=== PATIENT | male | born 2005 | race Two or more races ===

== ENCOUNTER 2025-05-21 23:27 | Inpatient (IN) | payer OTHER ==
[~2025-05-21] VITALS: Ht 172.7 cm; Wt 71.0 kg
[2025-05-21] MEDS: SODIUM CHLORIDE 0.9% 1,000 ML IV ONE (23:45)
[2025-05-21] MEDS: PANTOPRAZOLE 40 MG/10 ML VIAL INJ IV ONE (23:45)
[2025-05-21] MEDS: ONDANSETRON HCL 4 MG/2 ML VIAL IV ONE (23:45)
[2025-05-21 23:47] VITALS: PULSE 103; RESP 20; O2SAT 97
[2025-05-22 00:28] LABS: Hematocrit 42.6 % (41.0-53.0); Hemoglobin 14.7 g/dL (13.5-17.5); Mean Corpuscular Hemoglobin 29.7 pg (28.0-32.0); Mean Corpuscular Volume 85.9 fL (80.0-100.0); Nucleated Red Blood Cells % 0.0 %
--- NOTE | 2025-05-22 00:30 | ED.PDOC ---
GI ASSESSMENT HPI Comments Past Medical History: Denies Past Surgical History: Denies Social History: Alcohol RHONDA: ABD N/V ETOH. HPI: Poor Historian. 19-year-old male brought in by ambulance from home for abdominal pain nausea and vomiting altered and intoxicated. Patient has drank alcohol at awaiting. His family is with him. No reported history of fall or trauma. REVIEW OF SYSTEMS: CONSTITUTIONAL: Denies acute: fever, diaphoresis, chills, HEAD: Denies acute: headache, photophobia Eyes: Denies acute: Double vision, vision loss, eye pain, eye discharge. EARS: Denies acute: tinnitus, hearing loss, ear discharge, ear pain, THROAT: Denies acute: sore throat, swelling, difficulty swallowing , pain with swallowing, change in voice. NECK: Denies acute: neck pain, neck swelling, stiff neck. HEART: Denies acute : chest pain, palpitations, LUNGS: Denies acute: SOB, wheezing, cough, hemoptysis ABDOMEN: Denies acute: diarrhea, melena , hematemesis, hematochezia SKIN: Denies acute: rash, redness, lesions, itchiness. EXTREMITIES: Denies acute: calf pain, numbness, tingling, weakness, denies pain in extremity. Denies acute: Low back pain. Neuro: Denies acute: focal neurological deficit, motor or sensory focal neurological deficit, tremors, seizure like activity, dizziness, loss of bowel or bladder function, cauda equina like symptoms. : Denies acute: dysuria, hematuria, flank pain, increase in urinary frequency. PSYCH: Denies acute: hallucination, suicidal ideation, homicidal ideation. PHYSICAL EXAM: General: --moderate------acute distress, awake and alert. Head: normocephalic, atraumatic. No raccoon's eyes, no trejo sign. Neck: supple, trachea is midline, no swelling. Throat: Normal phonation. Eyes:, no erythema, no purulent discharge, no proptosis, no icterus. Heart: regular rate, regular rhythm, no significant murmur appreciated. Lungs: no apparent respiratory distress, No wheezing, no rhonchi, no crackles. No stridors Clear to auscultation bilaterally. Abdomen: Generalized tender to palpation, non distended, soft, no guarding, no rebound, + bowel sounds. Neuro: Awake, Alert, oriented to name, follows commands Appears under the influence of alcohol. Sedated. Skin: no petechia, no purpura, no cyanosis, non-pale, not jaundice. Lower extremities: --no - Pitting edema no deformity, no focal swelling, no calf TTP. Makes eye contact. moves all four extremities. Face: no apparent facial droop. ED COURSE: DISCLAIMER: This medical document was created using an electronic medical record system with voice recognition software and computerized dictation system. Although this document has been carefully reviewed, there might still be some phonetic and typographical errors. Occasional wrong-word or "sound-alike" substitutions may have occurred due to the inherent limitations of voice recognition software. These areas are purely typographical due to imperfections of the software programs and do not reflect any compromise in the patient's medical care. Please read the chart carefully and recognize, using context, where these substitutions have occurred. Chief Complaint: Abdominal Pain Time Seen by MD: 00:20 Reviewed Notes: Allergies Allergies: Coded Allergies: NO KNOWN ALLERGIES (Unverified , 05/21/25) Information Source: Patient, Relative Mode of Arrival: Carried Was a procedure done? Was a procedure done?: No GI differential Dx Differential Diagnosis: Other (DDX include but not limited to diverticulitis, c olitis, gastroenteritis, acute abdomen, SBO, enteritis, constipation, volvulus, appendicitis, Gallbladder disease, choledocolithiasis, ascending cholangitis, pancreatitis, intraAbdominal mass/neoplasm, hepatitis, UTI, pylonephritis, kidney stone, aneurysm, dissection, Inflammatory bowel disease, gastroparesis, ischemic bowel.Food poisoning, bacterial/parasitic/viral etiology, trauma, diabetes DKA,) X-Ray, Labs, Meds, VS Vital Signs Date Time Temp Pulse Resp B/P (MAP) Pulse Ox O2 Delivery O2 Flow Rate FiO2 05/22/25 06:08 98.1 88 18 110/72 (85) 97 98.1 05/22/25 01:44 98.1 85 18 146/103 (117) 97 98.1 05/22/25 00:46 108 05/21/25 23:47 103 20 97 Room Air* 0 21 05/21/25 23:47 98.1 104 20 159/103 (121) 97 98.1 05/21/25 23:27 97.8 110 18 134/100 100 97.8 Lab Test 05/22/25 05:07 05/22/25 02:57 05/21/25 23:56 05/21/25 23:44 Range/Units Plasma/Serum Blood Alcohol 41.9 H 132.2 H <10 mg/dL Lactic Acid Level 1.6 2.6 *H 0.4-2.0 mmol/L White Blood Count 7.9 4.4-10.8 10^3/uL Red Blood Count 4.96 4.5-5.90 10^6/uL Hemoglobin 14.7 13.5-17.5 g/dL Hematocrit 42.6 41.0-53.0 % Mean Corpuscular Volume 85.9 80.0-100.0 fL Mean Corpuscular Hemoglobin 29.7 28.0-32.0 pg Mean Corpuscular Hemoglobin Concent 34.6 32.0-36.0 g/dL Red Cell Distribution Width 12.2 11.8-14.3 % Platelet Count 197 140-450 10^3/uL Mean Platelet Volume 7.5 6.9-10.8 fL Neutrophils (%) (Auto) 53.9 37.0-80.0 % Lymphocytes (%) (Auto) 34.8 10.0-50.0 % Monocytes (%) (Auto) 8.7 0.0-12.0 % Eosinophils (%) (Auto) 2.0 0.0-7.0 % Basophils (%) (Auto) 0.6 0.0-2.0 % Neutrophils # (Auto) 4.3 1.6-8.6 10 ^3/uL Lymphocytes # (Auto) 2.8 0.4-5.4 10 ^3/uL Monocytes # (Auto) 0.7 0-1.3 10 ^3/uL Eosinophils # (Auto) 0.2 0-0.8 10 ^3/uL Basophils # (Auto) 0 0-0.2 10 ^3/uL Nucleated Red Blood Cells 0.0 % Sodium Level 142 136-145 mmol/L Potassium Level 3.6 3.5-5.1 mmol/L Chloride Level 104 98-107 mmol/L Carbon Dioxide Level 25 20-31 mmol/L Anion Gap 13 5-15 Blood Urea Nitrogen 6 L 9-23 mg/dL Creatinine 0.91 0.700-1.30 mg/dL Glomerular Filtration Rate Calc 125 >90 mL/min BUN/Creatinine Ratio 6.6 L 10.0-20.0 Serum Glucose 92 74-106 mg/dL Calcium Level 10.1 8.7-10.4 mg/dL Magnesium Level 2.0 1.6-2.6 mg/dL Total Bilirubin 0.3 0.2-1.0 mg/dL Aspartate Amino Transferase (AST) 12 L 13-40 U/L Alanine Aminotransferase (ALT) 14 7-40 U/L Alkaline Phosphatase 139 H 46-116 U/L Total Protein 8.2 5.7-8.2 g/dL Albumin 5.2 H 3.2-4.8 g/dL Lipase 27 12-53 U/L Urine Color Light-yellow Yellow Urine Clarity Clear Clear Urine pH 7.0 5.0-9.0 Urine Specific [place] 1.006 1.001-1.035 Urine Protein Negative Negative Urine Ketones Negative Negative Urine Blood Negative Negative /uL Urine Nitrite Negative Negative Urine Bilirubin Negative Negative Urine Urobilinogen Normal Negative mg/dL Urine Leukocyte Esterase Negative Negative /uL Urine RBC None seen 0 - 3 /hpf Urine Microscopic WBC 4 H 0-3 /HPF Urine Squamous Epithelial Cells Few <5 /hpf Urine Bacteria None seen None Seen /hpf Urine Glucose Normal Normal mg/dL Urine Opiates Screen Neg NEGATIVE Urine Fentanyl Screen Neg NEGATIVE Urine Barbiturates Screen Neg NEGATIVE Urine Phencyclidine Screen Neg NEGATIVE Urine Amphetamines Screen Neg NEGATIVE Urine Benzodiazepines Screen Neg NEGATIVE Urine Cocaine Screen Neg NEGATIVE Urine Cannabinoids Screen Neg NEGATIVE Current Medications Medications (Trade) Dose Ordered Sig/Sari Route Start Time Stop Time Status Last Admin Sodium Chloride 1,000 ml @ 1,000 mls/hr Q1H ONCE IV 05/21/25 23:45 05/22/25 00:44 DC 05/21/25 23:45 Ondansetron HCl (Zofran) 8 mg ONCE ONCE IV 05/21/25 23:45 05/21/25 23:46 DC 05/21/25 23:45 Pantoprazole Sodium (Protonix) 40 mg ONCE ONCE IV 05/21/25 23:45 05/21/25 23:46 DC 05/21/25 23:45 Acetaminophen (Tylenol Tablet) 650 mg ONCE ONCE PO 05/22/25 02:15 05/22/25 02:16 DC 05/22/25 02:[address] [address] Ph: [phone] DIAGNOSTIC IMAGING Diagnostic Imaging Report : [id number] Signed PATIENT: TERRY ELLIS ACCT: [id number] UNIT: [id number] : 2005 LOC: ER ROOM / BED: / AGE / SEX: 19 / M ADM STATUS: REG ER SERVICE [id number] ORDERING PHYSICIAN: BROWN BUSTOS DO PROCEDURE(s): ABPL - CT AB PEL WO CON-NO ORAL OR IV REASON: abd pain n/v ORDER NUMBER(s): [id number], ACCESSION NUMBER(s): [id number] Exam: CT CT AB PEL WO CON-NO ORAL OR IV History: abd pain n/v Comparison Study: None TECHNIQUE: Multidetector CT of the abdomen and pelvis was performed from lung bases to pubic symphysis. Imaging was performed without IV contrast. Axial, coronal, and sagittal multiplanar reformats were obtained from the axial data set by the technologist. RADIATION DOSE: CTDI vol 9.4 mGy. DLP 602.6 mGy.cm Findings: Limited evaluation of the solid organs in the absence of IV contrast. Evaluation is also degraded by motion artifact. Lungs: The lung bases are clear. Liver: Unremarkable. Spleen: Unremarkable. Pancreas: Unremarkable. Gallbladder: Unremarkable. Adrenals: Unremarkable Kidneys: Mild bilateral hydroureteronephrosis. No obstructing renal calculus. Pelvic Viscera: Distended appearance of the urinary bladder. Vasculature: Unremarkable. Retroperitoneum: Unremarkable. Bowel: No bowel obstruction. No CT evidence of appendicitis. The appendix measures 7 mm without periappendiceal stranding. Musculoskeletal: Unremarkable. Soft tissues: Unremarkable Impression: 1. Distended urinary bladder with mild bilateral hydroureteronephrosis, possibly on the basis of bladder outlet obstruction. 2. Mildly dilated appendix without periappendiceal stranding. Findings are equivocal for acute appendicitis and further clinical correlation is suggested. ATED BY: SANDOVAL OTT MD DICTATED DATE/TIME: 05/22/2556 SIGNED BY: SANDOVAL OTT MD SIGNED DATE/TIME: 05/22/2556 CC: Time of 1ST Reevaluation: 00:20 Reevaluation 1ST: Unchanged Time of 2ND Reevaluation: 05:20 (PATIENT WAS REASSESSED AT THIS TIME. HE WAS ABLE TO VOID SIGNIFICANT MONITOR OF URINE EARLIER AND EMPTIED HIS BLADDER. Patient was reassessed and he still has some lower abdominal suprapubic tenderness to palpation of unknown etiology. I will place the patient for admission to the hospital for further evaluation and treatment and reassessment.) Patient Education/Counseling: Diagnosis, Treatment Family Education/Counseling: Diagnosis, Treatment Comments MDM: patient presented with the above HPI.--abdominal pain/alcohol intoxication----workup was initiated. patient was found with the above mentioned diagnosis. the following medications were ordered: please refer to order lists of meds and tests obtained by myself Dr. Bustos. Patient ED course and VS have been stabilized. Patient has been reassessed in the ED and remained in a stable condition. Pertinent incidental findings were discussed with the patient and/or family. Patient/family voices understanding and is agreeable with plan. Patient has been observed in the ED adequate length of time to insure improvement/stability. Escalation of care considered: Consideration of escalation to observation or admission Patient was ADMITTED to the medicine team for further evaluation and treatment of their presentation. All the reports of any imaging studies that were ordered by myself were reviewed by myself. SEPSIS Sepsis Screen Date sepsis recognized/suspect: May 21, 2025 Time Sepsis recognized/suspect: 2356 Recent Procedure: No On Antibiotic Therapy: No Respiratory Rate >20: No Heart Rate >90: No Temp<36 C (96.8 F) or >38.3 C: No SBP <90 or MAP <65 mmHG: No New Acute Mental Status Change: No Is the patient on CPAP, BIPAP,: No Physician Orders Aircraft Structural Design Engineer (05/21/25 ) Electrocardigram (05/21/25 23:44) Ct Ab Pel Wo Con-No Oral Or Iv (05/21/25 23:44) Vital Signs Date Time Temp Pulse Resp B/P (MAP) Pulse Ox O2 Delivery O2 Flow Rate FiO2 05/22/25 06:08 98.1 88 18 110/72 (85) 97 98.1 05/22/25 01:44 98.1 85 18 146/103 (117) 97 98.1 05/22/25 00:46 108 05/21/25 23:47 103 20 97 Room Air* 0 21 05/21/25 23:47 98.1 104 20 159/103 (121) 97 98.1 05/21/25 23:27 97.8 110 18 134/100 100 97.8 Laboratory Tests Test 05/21/25 23:56 05/22/25 02:57 Lactic Acid Level 2.6 mmol/L (0.4-2.0) *H 1.6 mmol/L (0.4-2.0) White Blood Count 7.9 10^3/uL (4.4-10.8) Medications Medications Dose Ordered Sig/Sari Route Start Time Stop Time Status Last Admin Dose Admin Acetaminophen 650 mg ONCE ONCE PO 05/22/25 02:15 05/22/25 02:16 DC 05/22/25 02:28 Ondansetron HCl 8 mg ONCE ONCE IV 05/21/25 23:45 05/21/25 23:46 DC 05/21/25 23:45 Pantoprazole Sodium 40 mg ONCE ONCE IV 05/21/25 23:45 05/21/25 23:46 DC 05/21/25 23:45 Sodium Chloride 1,000 ml @ 1,000 mls/hr Q1H ONCE IV 05/21/25 23:45 05/22/25 00:44 DC 05/21/25 23:45 Departure 1 Departure Time of Disposition: 05:21 Impression: Primary Impression: Alcohol abuse Additional Impression: Abdominal pain Disposition: ADMITTED INPATIENT Admit to: Tele Condition: Guarded Discharged With: Self Critical Care Note Critical Care Time?: No I personally scribed for BROWN BUSTOS DO ([email or web address]) on 05/22/25 at 00:30. Electronically submitted by Andrey Latham ([email or web address]). I personally scribed for BROWN BUSTOS DO ([email or web address]) on 05/22/25 at 04:32. Electronically submitted by Andrey Latham [email or web address]). BROWN BUSTOS DO May 22, 2025 00:30
[2025-05-22 00:41] LABS: Alanine Aminotransferase 14 U/L (7-40); Anion Gap 13 (5-15); BUN/Creatinine Ratio 6.6 (10.0-20.0); Calcium 10.1 mg/dL (8.7-10.4); Carbon Dioxide 25 mmol/L (20-31); Chloride 104 mmol/L (98-107); Glucose 92 mg/dL (74-106); Lipase 27 U/L (12-53); Magnesium 2.0 mg/dL (1.6-2.6); Potassium 3.6 mmol/L (3.5-5.1); Sodium 142 mmol/L (136-145); Total Protein 8.2 g/dL (5.7-8.2)
[2025-05-22 00:51] LABS: Albumin 5.2 g/dL (3.2-4.8); Alkaline Phosphatase 139 U/L (46-116); Bilirubin, Total 0.3 mg/dL (0.2-1.0); Blood Urea Nitrogen 6 mg/dL (9-23); Lactic Acid w/Reflex 2.6 mmol/L (0.4-2.0)
--- NOTE | 2025-05-22 00:59 | DVH ---
Exam: CT CT AB PEL WO CON-NO ORAL OR IV History: abd pain n/v Comparison Study: None TECHNIQUE: Multidetector CT of the abdomen and pelvis was performed from lung bases to pubic symphysis. Imaging was performed without IV contrast. Axial, coronal, and sagittal multiplanar reformats were obtained from the axial data set by the technologist. RADIATION DOSE: CTDI vol 9.4 mGy. DLP 602.6 mGy.cm Findings: Limited evaluation of the solid organs in the absence of IV contrast. Evaluation is also degraded by motion artifact. Lungs: The lung bases are clear. Liver: Unremarkable. Spleen: Unremarkable. Pancreas: Unremarkable. Gallbladder: Unremarkable. Adrenals: Unremarkable Kidneys: Mild bilateral hydroureteronephrosis. No obstructing renal calculus. Pelvic Viscera: Distended appearance of the urinary bladder. Vasculature: Unremarkable. Retroperitoneum: Unremarkable. Bowel: No bowel obstruction. No CT evidence of appendicitis. The appendix measures 7 mm without periappendiceal stranding. Musculoskeletal: Unremarkable. Soft tissues: Unremarkable Impression: 1. Distended urinary bladder with mild bilateral hydroureteronephrosis, possibly on the basis of bladder outlet obstruction. 2. Mildly dilated appendix without periappendiceal stranding. Findings are equivocal for acute appendicitis and further clinical correlation is suggested.
[2025-05-22 01:14] LABS: Urine Protein, UAD Negative (Negative)
[2025-05-22 01:16] LABS: Amphetamine Screen, Urine Neg (NEGATIVE)
[2025-05-22 01:33] LABS: Barbiturate Scree,Urine Neg (NEGATIVE); Benzodiazephine Screen, Urine Neg (NEGATIVE); Cannabinoid Screen, Urine Neg (NEGATIVE); Cocaine Screen, Urine Neg (NEGATIVE); Opiate Scree,Urine Neg (NEGATIVE); Phencyclidine Screen, Urine Neg (NEGATIVE)
[2025-05-22] MEDS: ACETAMINOPHEN 325 MG TAB PO ONE (02:28)
[2025-05-22] MEDS: SODIUM CHLORIDE 0.9% 1,000 ML IV SCH (06:00)
[2025-05-22 07:30] VITALS: PULSE 95; RESP 17; O2SAT 99
[2025-05-22] MEDS ORDERED: ONDANSETRON HCL 4 MG/2 ML VIAL IV PRN (10:00)
[2025-05-22 11:08] VITALS: BP 123/76; PULSE 61; RESP 19; TEMP 98.1; O2SAT 100
[2025-05-22] MEDS ORDERED: LORazepam 2MG/ML-1ML VIAL IV PRN (11:45)
[2025-05-22] MEDS: THIAMINE 100mg/ml INJ (200mg/2ml VIAL) IV SCH (11:58)
[2025-05-22 12:57] LABS: Hematocrit 40.9 % (41.0-53.0); Hemoglobin 13.9 g/dL (13.5-17.5); Mean Corpuscular Hemoglobin 29.4 pg (28.0-32.0); Mean Corpuscular Volume 86.7 fL (80.0-100.0); Nucleated Red Blood Cells % 0.1 %
[2025-05-22 13:00] VITALS: BP 120/79; PULSE 59; RESP 20; TEMP 98.2; O2SAT 100
[2025-05-22 13:10] LABS: Chloride 105 mmol/L (98-107); Potassium 4.0 mmol/L (3.5-5.1); Sodium 145 mmol/L (136-145)
[2025-05-22 13:11] LABS: Anion Gap 9 (5-15); Calcium 9.6 mg/dL (8.7-10.4); Carbon Dioxide 31 mmol/L (20-31)
[2025-05-22 13:15] LABS: INR 1.08 (0.9-1.15); Partial Thromboplastin Time 28.5 SEC (24.5-34.5); Prothrombin Time 11.4 sec (9.3-11.8)
[2025-05-22 13:16] LABS: BUN/Creatinine Ratio 9.3 (10.0-20.0); Glucose 82 mg/dL (74-106)
[2025-05-22 13:17] LABS: Blood Urea Nitrogen 8 mg/dL (9-23)
--- NOTE | 2025-05-22 13:27 | DVH ---
EXAM DESCRIPTION: RENAL ULTRASOUND CLINICAL HISTORY: possible cystoscopy due to bladder outlet COMPARISON: CT abdomen pelvis same day TECHNIQUE: Multiplanar ultrasound examination of the kidneys and urinary bladder was performed. FINDINGS: The right kidney measures 9.6 cm. 6mm right renal calculus.. No hydronephrosis.. No solid renal masses. The left kidney measures 10.0 cm. No renal calculus. No hydronephrosis.. No solid renal masses. The echogenicity of the kidneys is within normal limits. Moderately distended urinary bladder, volume 514 mL. IMPRESSION: 1. Non-obstructive 6mm right renal calculus. No significant hydronephrosis 2. Moderately distended urinary bladder.
[2025-05-22] MEDS: FOLIC ACID 1 MG in D5W 5% 50 ML INJ SCH (13:34)
--- NOTE | 2025-05-22 14:21 | DVHHPRES ---
History of Present Illness Resident Creating Document: KRISHNA NGUYEN RESIDENT History of Present Illness This is a 19-year-old male with apparent no past medical history came to ER accompanied his mother (Santy) with the complaint of abdominal pain which started for 4-5 days and getting worse suddenly around 11:00 p.m. day before admission. Abdominal pain was 10/10 intensity, stabbing in nature, no aggravating or relieving factor associated with vomiting which contain food materials but not mixed with blood. Patient denies any similar symptoms before. Patient drank alcohol hour before abdominal pain started. In ER, patient treated conservatively and pain improved. Currently denies any sweating, anxiety, visual disturbance, headache, abdominal pain, seizure, hallucination. Past medical history: Nothing contributory Past surgical history: Nothing contributory Social history: Drinks alcohol and last drink was 10:00 p.m. last night. Allergy: No known allergy PCP: None Home medication: None Review of Systems Constitutional: Yes: Weakness, Malaise; No: Fever, Chills, Sweats, Other Eyes: No: Pain, Vision change, Conjunctivae inflammation, Eyelid inflammation, Other, Redness ENT: No: Ear pain, Ear discharge, Nose pain, Nose discharge, Nose congestion, Mouth pain, Mouth swelling, Throat pain, Throat swelling, Other Respiratory: No: Cough, Dry, Shortness of breath, SOB with excertion, Wheezing, Hemoptysis, Pleuritic Pain, Sputum, Wheezing, Other Cardiovascular: No: Chest Pain, Palpitations, Orthopnea, Paroxysmal Noc. Dyspnea, Edema, Lt Headedness, Other Gastrointestinal: Vomiting, Abdominal Pain; No: Nausea, Diarrhea, Constipation, Melena, Hematochezia, Other Genitourinary: No Dysuria, No Frequency, No Incontinence, No Hematuria, No Retention, No Other Musculoskeletal: No: other, neck pain, shoulder pain, arm pain, back pain, hand pain, leg pain, foot pain Skin: No: Rash, Lesions, Jaundice, Bruising, Other Neurological: No: Weakness, Numbness, Incoordination, Change in speech, Confusion, Seizures, Other Allergies: Coded Allergies: NO KNOWN ALLERGIES (Unverified , 05/21/25) Medications Current Medications Medications Dose Ordered Sig/Sari Route Start Time Stop Time Status Last Admin Dose Admin Sodium Chloride 1,000 ml @ 100 mls/hr Q10H IV 05/22/25 10:00 05/22/25 11:58 100 MLS/HR Ondansetron HCl 4 mg Q4HP PRN IV 05/22/25 10:00 Morphine Sulfate 2 mg Q4HPRN PRN IV 05/22/25 10:00 Ceftriaxone Sodium 50 ml @ 100 mls/hr DAILY@09 IV 05/23/25 09:00 Metronidazole 100 ml @ 100 mls/hr Q8HR IV 05/22/25 22:00 Folic Acid 1 mg/ Multivitamins 10 ml/Magnesium Sulfate 8 meq/ Thiamine HCl 100 mg/Dextrose 1,013.2 ml @ 125.001 mls/hr DAILY@1800 INJ 05/22/25 18:00 Thiamine HCl 100 mg DAILY IV 05/22/25 10:00 05/22/25 11:58 100 MG Folic Acid 1 mg/ Dextrose 50.2 ml @ 200.8 mls/ hr DAILY INJ 05/22/25 10:00 05/22/25 13:34 200.8 MLS/HR Famotidine 20 mg DAILY IV 05/23/25 10:00 Lorazepam 1 mg Q5MINP PRN IV 05/22/25 11:45 Exam Vital Signs Vital Signs Date Time Temp Pulse Resp B/P (MAP) Pulse Ox O2 Delivery O2 Flow Rate FiO2 05/22/25 13:00 98.2 59 20 120/79 (93) 100 98.2 05/22/25 11:08 Room Air* 0 21 General Appearance: Oriented X3, Cooperative, moderate distress HEENT: Atraumatic, PERRLA, EOMI, Mucous membr. moist/pink Respiratory: Clear to auscultation, Normal air movement Cardiovascular: Regular rate, Normal S1, Normal S2, No murmurs Abdominal: Normal bowel sounds, No hepatospenomegaly, Other (Left and right lower quadrant tender on deep palpation, rebound tenderness positive) Extremities: No clubbing, No cyanosis, No edema Skin: No breakdown, No significant lesion Neuro: Normal gait, Normal speech, Strength at 5/5 X4 ext, Sensation intact Psych/Mental Status: Mental status NL, Mood NL Labs/Xrays Labs Test 05/22/25 12:01 05/22/25 05:07 05/22/25 02:57 05/21/25 23:56 Range/Units White Blood Count 5.3 # 4.4-10.8 10^3/uL Red Blood Count 4.72 4.5-5.90 10^6/uL Hemoglobin 13.9 13.5-17.5 g/dL Hematocrit 40.9 L 41.0-53.0 % Mean Corpuscular Volume 86.7 80.0-100.0 fL Mean Corpuscular Hemoglobin 29.4 28.0-32.0 pg Mean Corpuscular Hemoglobin Concent 33.9 32.0-36.0 g/dL Red Cell Distribution Width 12.3 11.8-14.3 % Platelet Count 188 140-450 10^3/uL Mean Platelet Volume 8.0 6.9-10.8 fL Neutrophils (%) (Auto) 59.8 37.0-80.0 % Lymphocytes (%) (Auto) 30.0 10.0-50.0 % Monocytes (%) (Auto) 7.4 0.0-12.0 % Eosinophils (%) (Auto) 1.9 0.0-7.0 % Basophils (%) (Auto) 0.9 0.0-2.0 % Neutrophils # (Auto) 3.2 1.6-8.6 10 ^3/uL Lymphocytes # (Auto) 1.6 0.4-5.4 10 ^3/uL Monocytes # (Auto) 0.4 0-1.3 10 ^3/uL Eosinophils # (Auto) 0.1 0-0.8 10 ^3/uL Basophils # (Auto) 0 0-0.2 10 ^3/uL Nucleated Red Blood Cells 0.1 % Prothrombin Time 11.4 9.3-11.8 sec Prothrombin Time INR 1.08 0.9-1.15 Activated Partial Thromboplast Time 28.5 24.5-34.5 SEC Sodium Level 145 136-145 mmol/L Potassium Level 4.0 3.5-5.1 mmol/L Chloride Level 105 98-107 mmol/L Carbon Dioxide Level 31 20-31 mmol/L Anion Gap 9 5-15 Blood Urea Nitrogen 8 L 9-23 mg/dL Creatinine 0.86 0.700-1.30 mg/dL Glomerular Filtration Rate Calc 128 >90 mL/min BUN/Creatinine Ratio 9.3 L 10.0-20.0 Serum Glucose 82 74-106 mg/dL Hemoglobin A1c 5.3 <5.7 % A1C Calcium Level 9.6 8.7-10.4 mg/dL Thyroid Stimulating Hormone (TSH) 1.26 0.55-4.78 uIU/mL Plasma/Serum Blood Alcohol 41.9 H <10 mg/dL Lactic Acid Level 1.6 0.4-2.0 mmol/L Magnesium Level 2.0 1.6-2.6 mg/dL Total Bilirubin 0.3 0.2-1.0 mg/dL Aspartate Amino Transferase (AST) 12 L 13-40 U/L Alanine Aminotransferase (ALT) 14 7-40 U/L Alkaline Phosphatase 139 H 46-116 U/L Total Protein 8.2 5.7-8.2 g/dL Albumin 5.2 H 3.2-4.8 g/dL Lipase 27 12-53 U/L Test 05/21/25 23:44 Range/Units Urine Color Light-yellow Yellow Urine Clarity Clear Clear Urine pH 7.0 5.0-9.0 Urine Specific [place] 1.006 1.001-1.035 Urine Protein Negative Negative Urine Ketones Negative Negative Urine Blood Negative Negative /uL Urine Nitrite Negative Negative Urine Bilirubin Negative Negative Urine Urobilinogen Normal Negative mg/dL Urine Leukocyte Esterase Negative Negative /uL Urine RBC None seen 0 - 3 /hpf Urine Microscopic WBC 4 H 0-3 /HPF Urine Squamous Epithelial Cells Few <5 /hpf Urine Bacteria None seen None Seen /hpf Urine Glucose Normal Normal mg/dL Urine Opiates Screen Neg NEGATIVE Urine Fentanyl Screen Neg NEGATIVE Urine Barbiturates Screen Neg NEGATIVE Urine Phencyclidine Screen Neg NEGATIVE Urine Amphetamines Screen Neg NEGATIVE Urine Benzodiazepines Screen Neg NEGATIVE Urine Cocaine Screen Neg NEGATIVE Urine Cannabinoids Screen Neg NEGATIVE SEPSIS Sepsis Screen Date sepsis recognized/suspect: May 22, 2025 Time Sepsis recognized/suspect: 729 Recent Procedure: No On Antibiotic Therapy: No Respiratory Rate >20: No Heart Rate >90: Yes Temp<36 C (96.8 F) or >38.3 C: No SBP <90 or MAP <65 mmHG: No New Acute Mental Status Change: No Is the patient on CPAP, BIPAP,: No Physician Orders Admit (05/22/25 09:53) Allergies (05/22/25 09:53) Code Status (05/22/25 09:53) Sodium Chloride 0.9% (05/22/25 10:00) Ondansetron Hcl (Zofran) (05/22/25 10:00) Npo (Nothing By Mouth) Diet (05/22/25 Lunch) Morphine Sulfate Injection (05/22/25 10:00) Notify Md Of Changes From Base (05/22/25 09:53) Ceftriaxone 1gm/50ml (Rocephin) (05/23/25 09:00) Metronidazole 500mg/100ml (Flagyl 500mg/ (05/22/25 22:00) Folic Acid... (05/22/25 18:00) Thiamine Inj (05/22/25 10:00) Folic Acid (05/22/25 10:00) * Urology Consult (05/22/25 09:53) Famotidine Injection (Pepcid Injection) (05/23/25 10:00) Lorazepam 2mg/Ml Inj (Ativan Inj) (05/22/25 11:45) Vitamin D, 25-Hydroxy (05/22/25 11:33) Vitamin B12 (05/22/25 11:33) Kidney (05/22/25 12:20) Insert Vance Catheter QSHIFT (05/22/25 13:45) Vital Signs Date Time Temp Pulse Resp B/P (MAP) Pulse Ox O2 Delivery O2 Flow Rate FiO2 05/22/25 13:00 98.2 59 20 120/79 (93) 100 98.2 05/22/25 11:08 61 19 100 Room Air* 0 21 05/22/25 11:08 98.1 61 19 123/76 (92) 100 98.1 05/22/25 10:30 63 14 123/75 (91) 98 05/22/25 09:35 64 05/22/25 09:00 55 16 103/64 (77) 99 05/22/25 08:00 63 16 117/60 (79) 99 05/22/25 07:30 98.0 95 17 112/69 (83) 99 98.0 05/22/25 07:30 98.0 95 17 112/69 (83) 99 98.0 05/22/25 07:30 95 17 99 Room Air* 0 21 05/22/25 06:08 98.1 88 18 110/72 (85) 97 98.1 Laboratory Tests Test 05/22/25 02:57 05/22/25 12:01 Lactic Acid Level 1.6 mmol/L (0.4-2.0) White Blood Count 5.3 10^3/uL (4.4-10.8) # Medications Medications Dose Ordered Sig/Sari Route Start Time Stop Time Status Last Admin Dose Admin Acetaminophen 650 mg ONCE ONCE PO 05/22/25 02:15 05/22/25 02:16 DC 05/22/25 02:28 650 MG Ceftriaxone Sodium 50 ml @ 100 mls/hr ONCE ONCE IV 05/22/25 10:00 05/22/25 10:29 DC 05/22/25 11:59 100 MLS/HR Folic Acid 1 mg/ Dextrose 50.2 ml @ 200.8 mls/ hr DAILY INJ 05/22/25 10:00 05/22/25 13:34 200.8 MLS/HR Metronidazole 100 ml @ 100 mls/hr ONCE ONCE IV 05/22/25 10:00 05/22/25 10:59 DC 05/22/25 11:59 100 MLS/HR Sodium Chloride 1,000 ml @ 100 mls/hr Q10H IV 05/22/25 10:00 05/22/25 11:58 100 MLS/HR Thiamine HCl 100 mg DAILY IV 05/22/25 10:00 05/22/25 11:58 100 MG Assessment/Plan Assessment/Plan Intractable abdominal pain due to acute appendicitis SIRS not sepsis CT abdomen shows: Mildly dilated appendix without periappendiceal stranding. Findings are equivocal for acute appendicitis Check blood culture, adjust antibiotic according to culture and sensitivity Lactic acid 2.6 trending down to 1.6 Ceftriaxone treat Gram-negative bacteria Metronidazole for anaerobic coverage NPO for possible surgical intervention IVF INR for coagulopathy IV antiemetic IV pain control Monitor for pain and labs Acute Alcohol Intoxication Alcohol use disorder Last EtoH drank hour before admission. Alcohol amount 132> 41.9 in blood IV Ativan PRN for withdrawal seizure Multivitamins including Folic acid and Inj Thiamine 100mg IV, [place] iv x1 CIWA bedside follow up. Current CIWA score 1 Librium ordered by primary team as needed. IV Fluids for hydration. Monitor K, Mg and PO4 and replenish as needed. Counseling for alcohol cesation with follow up a rehab upon discharge Lactic acidosis Lactic acid level 2.6 trending down to 1.6 IVF Bladder outlet obstruction With unclear etiology possibly stone CT abdomen and pelvis shows Distended urinary bladder with mild bilateral hydroureteronephrosis, possibly on the basis of bladder outlet obstruction. Ultrasound: Non-obstructive 6mm right renal calculus. No significant hydronephrosis Moderately distended urinary bladder. Start tamsulosin 0.4 mg for bladder obstruction IVF Urology consult for possible cystoscopy Monitoring intake output Elevated alkaline phosphatase Monitor labs GI prophylaxis: Famotidine DVT prophylaxis: SCD Plan discussed with patient and mother. Goals of care discussion, full code status Case discussed with Dr. Goins. Plan discussed with: Patient, Other (Nurse, mother) My Orders Orders - KRISHNA NGUYEN Procedure Category Date Status Time Admit ADMIT 05/22/25 Transmitted 09:53 Allergies DORITA 05/22/25 In Process 09:53 Code Status CODE 05/22/25 Transmitted 09:53 Sodium Chloride 0.9% PHA 05/22/25 In Process 10:00 Ondansetron Hcl PHA 05/22/25 In Process (Zofran) 10:00 Npo (Nothing By DIET 05/22/25 Transmitted Mouth) Diet Lunch Morphine Sulfate PHA 05/22/25 In Process Injection 10:00 Notify Md Of Changes DORITA 05/22/25 In Process From Base 09:53 Ceftriaxone 1gm/50ml PHA 05/23/25 In Process (Rocephin) 09:00 Metronidazole PHA 05/22/25 In Process 500mg/100ml (Flagyl 22:00 Folic Acid... PHA 05/22/25 In Process 18:00 Thiamine Inj PHA 05/22/25 In Process 10:00 Folic Acid PHA 05/22/25 In Process 10:00 * Urology Consult CONS 05/22/25 Verified 09:53 Famotidine Injection PHA 05/23/25 In Process (Pepcid Injection) 10:00 Lorazepam 2mg/Ml Inj PHA 05/22/25 In Process (Ativan Inj) 11:45 Vitamin D, 25-Hydroxy LAB 05/22/25 In Process 11:33 Vitamin B12 LAB 05/22/25 In Process 11:33 Date of Service: May 22, 2025 Billing Provider: MONCHO GOINS MD Common Visit Codes: [id number] INP/OBS CARE (HIGH) Secondary Visit Codes: 38527-[id number] CARE PLAN 30 MINUTES KRISHNA NGUYEN May 22, 2025 14:21
[2025-05-22 17:00] VITALS: BP 118/61; PULSE 54; RESP 20; TEMP 97.9; O2SAT 99
[2025-05-22] MEDS: FOLIC ACID 1 MG, MULTIPLE VITAMIN 10 ML, MAGNESIUM SULF SDV 50% 8 MEQ, THIAMINE INJ 100... INJ SCH (18:04)
--- NOTE | 2025-05-22 19:37 | DVHINCON2 ---
Consultation - Surgical Date Seen: May 22, 2025 Referring Physician Reason for Consultation Appendicitis History of Present Illness History of Present Illness Mr. Salgado is a 19-year-old male who presented with lower abdominal pain nausea and vomiting yesterday. Patient states that he has gotten this pain episodes in the past for the last 2 years, and is always the same lower abdominal pain. Denies fevers, chills, changes in urinary or stooling habits. Past Medical/Surgical History Past Medical/Surgical History Past medical history and past surgical history denies Family and Social History Family and Social History Family history noncontributory Allergies and medications Allergies: Coded Allergies: NO KNOWN ALLERGIES (Unverified , 05/21/25) Review of systems Review of Systems: Deferred Examination Vital signs Vital Signs Date Time Temp Pulse Resp B/P (MAP) Pulse Ox O2 Delivery O2 Flow Rate FiO2 05/22/25 17:00 97.9 54 20 118/61 (80) 99 97.9 05/22/25 11:08 Room Air* 0 21 Medications Current Medications Medications (Trade) Dose Ordered Sig/Sari Route PRN Reason Start Time Stop Time Status Last Admin Sodium Chloride 1,000 ml @ 100 mls/hr Q10H IV 05/22/25 10:00 05/22/25 11:58 Ondansetron HCl (Zofran) 4 mg Q4HP PRN IV NAUSEA / VOMITING 05/22/25 10:00 Morphine Sulfate 2 mg Q4HPRN PRN IV SEVERE PAIN (7-10 PAIN SCALE) 05/22/25 10:00 Ceftriaxone Sodium 50 ml @ 100 mls/hr DAILY@09 IV 05/23/25 09:00 Metronidazole 100 ml @ 100 mls/hr Q8HR IV 05/22/25 22:00 Folic Acid 1 mg/ Multivitamins 10 ml/Magnesium Sulfate 8 meq/ Thiamine HCl 100 mg/Dextrose 1,013.2 ml @ 125.001 mls/hr DAILY@1800 INJ 05/22/25 18:00 05/22/25 18:04 Thiamine HCl 100 mg DAILY IV 05/22/25 10:00 05/22/25 11:58 Folic Acid 1 mg/ Dextrose 50.2 ml @ 200.8 mls/ hr DAILY INJ 05/22/25 10:00 05/22/25 13:34 Famotidine (Pepcid Injection) 20 mg DAILY IV 05/23/25 10:00 Lorazepam (Ativan Inj) 1 mg Q5MINP PRN IV SEIZURES 05/22/25 11:45 Laboratory Labs Test 05/22/25 12:01 05/22/25 05:07 05/22/25 02:57 05/21/25 23:56 Range/Units White Blood Count 5.3 # 4.4-10.8 10^3/uL Red Blood Count 4.72 4.5-5.90 10^6/uL Hemoglobin 13.9 13.5-17.5 g/dL Hematocrit 40.9 L 41.0-53.0 % Mean Corpuscular Volume 86.7 80.0-100.0 fL Mean Corpuscular Hemoglobin 29.4 28.0-32.0 pg Mean Corpuscular Hemoglobin Concent 33.9 32.0-36.0 g/dL Red Cell Distribution Width 12.3 11.8-14.3 % Platelet Count 188 140-450 10^3/uL Mean Platelet Volume 8.0 6.9-10.8 fL Neutrophils (%) (Auto) 59.8 37.0-80.0 % Lymphocytes (%) (Auto) 30.0 10.0-50.0 % Monocytes (%) (Auto) 7.4 0.0-12.0 % Eosinophils (%) (Auto) 1.9 0.0-7.0 % Basophils (%) (Auto) 0.9 0.0-2.0 % Neutrophils # (Auto) 3.2 1.6-8.6 10 ^3/uL Lymphocytes # (Auto) 1.6 0.4-5.4 10 ^3/uL Monocytes # (Auto) 0.4 0-1.3 10 ^3/uL Eosinophils # (Auto) 0.1 0-0.8 10 ^3/uL Basophils # (Auto) 0 0-0.2 10 ^3/uL Nucleated Red Blood Cells 0.1 % Prothrombin Time 11.4 9.3-11.8 sec Prothrombin Time INR 1.08 0.9-1.15 Activated Partial Thromboplast Time 28.5 24.5-34.5 SEC Sodium Level 145 136-145 mmol/L Potassium Level 4.0 3.5-5.1 mmol/L Chloride Level 105 98-107 mmol/L Carbon Dioxide Level 31 20-31 mmol/L Anion Gap 9 5-15 Blood Urea Nitrogen 8 L 9-23 mg/dL Creatinine 0.86 0.700-1.30 mg/dL Glomerular Filtration Rate Calc 128 >90 mL/min BUN/Creatinine Ratio 9.3 L 10.0-20.0 Serum Glucose 82 74-106 mg/dL Hemoglobin A1c 5.3 <5.7 % A1C Calcium Level 9.6 8.7-10.4 mg/dL Thyroid Stimulating Hormone (TSH) 1.26 0.55-4.78 uIU/mL Plasma/Serum Blood Alcohol 41.9 H <10 mg/dL Lactic Acid Level 1.6 0.4-2.0 mmol/L Magnesium Level 2.0 1.6-2.6 mg/dL Total Bilirubin 0.3 0.2-1.0 mg/dL Aspartate Amino Transferase (AST) 12 L 13-40 U/L Alanine Aminotransferase (ALT) 14 7-40 U/L Alkaline Phosphatase 139 H 46-116 U/L Total Protein 8.2 5.7-8.2 g/dL Albumin 5.2 H 3.2-4.8 g/dL Lipase 27 12-53 U/L Test 05/21/25 23:44 Range/Units Urine Color Light-yellow Yellow Urine Clarity Clear Clear Urine pH 7.0 5.0-9.0 Urine Specific [place] 1.006 1.001-1.035 Urine Protein Negative Negative Urine Ketones Negative Negative Urine Blood Negative Negative /uL Urine Nitrite Negative Negative Urine Bilirubin Negative Negative Urine Urobilinogen Normal Negative mg/dL Urine Leukocyte Esterase Negative Negative /uL Urine RBC None seen 0 - 3 /hpf Urine Microscopic WBC 4 H 0-3 /HPF Urine Squamous Epithelial Cells Few <5 /hpf Urine Bacteria None seen None Seen /hpf Urine Glucose Normal Normal mg/dL Urine Opiates Screen Neg NEGATIVE Urine Fentanyl Screen Neg NEGATIVE Urine Barbiturates Screen Neg NEGATIVE Urine Phencyclidine Screen Neg NEGATIVE Urine Amphetamines Screen Neg NEGATIVE Urine Benzodiazepines Screen Neg NEGATIVE Urine Cocaine Screen Neg NEGATIVE Urine Cannabinoids Screen Neg NEGATIVE Examination: GENERAL:Normal (AAO x3), HEENT:Normal (No icterus, neck supple), LUNGS:Normal (Nonlabored breathing with symmetric expansion), ABDOMEN:Normal (Flat, soft, depressible, no scars, no hernias, no masses, suprapubic tenderness, no rebound, no guarding) Problem List/Assessment/Plan Problems: (1) Chronic appendicitis Assessment and Plan Mr. Salgado is a 19-year-old male who likely presents with chronic appendicitis given that he has been having the same pain for the last [address] was reviewed and notes a borderline enlarged appendix without inflammatory changes. On physical exam he is tender in the area overlying the appendix. Patient will benefit from laparoscopic appendectomy. Procedure, risks, benefits, complications and alternatives discussed with the patient. Patient opted for surgical plan. 1. On-call to OR tomorrow for laparoscopic appendectomy, possible open 2. NPO at midnight 3. IV antibiotics Plan discussed with Plan discussed with: Patient Visit Coding Surgery Date of Service if different f: May 22, 2025 Billing Provider: JESSI ESTEVES MD Surgery Visit Codes: 06165 - INP CONSULT <110 MIN JESSI ESTEVES MD May 22, 2025 19:37
[2025-05-22 20:10] VITALS: O2SAT 0
[2025-05-22] MEDS: MORPHINE SULFATE INJ 2 MG/ml SYRG IV PRN (20:35)
[2025-05-22 21:00] VITALS: BP 134/85; PULSE 60; RESP 18; TEMP 98.4; O2SAT 99
[2025-05-23] VITALS (10 sets, daily range): BP systolic 110–137; BP diastolic 66–80; PULSE 53–84; RESP 14–18; TEMP 97.4–98.4; O2SAT 0–100
[2025-05-23 07:11] LABS: Anion Gap 9 (5-15); Calcium 9.8 mg/dL (8.7-10.4); Carbon Dioxide 30 mmol/L (20-31); Chloride 101 mmol/L (98-107); Potassium 4.0 mmol/L (3.5-5.1); Sodium 140 mmol/L (136-145)
[2025-05-23 07:17] LABS: BUN/Creatinine Ratio 11.1 (10.0-20.0); Blood Urea Nitrogen 10 mg/dL (9-23); Glucose 81 mg/dL (74-106); Magnesium 2.2 mg/dL (1.6-2.6)
[2025-05-23 07:26] LABS: Hematocrit 39.2 % (41.0-53.0); Hemoglobin 13.6 g/dL (13.5-17.5); Mean Corpuscular Hemoglobin 30.0 pg (28.0-32.0); Mean Corpuscular Volume 86.3 fL (80.0-100.0); Nucleated Red Blood Cells % 0.1 %
--- NOTE | 2025-05-23 08:58 | ECG ---
[facility] Test Date: 2025-05-22 Test Time: 00:46:32 Pat Name: TERRY ELLIS Department: ED Room: 0220 A Gender: M Rug Cleaner: : 2005 Requested By: BROWN BUSTOS Order Number: [id number] Reading MD: Ben Cabrera Measurements Intervals [place] Rate: 108 P: 77 CA: 189 QRS: 87 QRSD: 93 T: 72 QT: 349 QTc: 468 Interpretive Statements Sinus tachycardia Consider right atrial enlargement LVH by voltage ST elevation suggests acute pericarditis Electronically Signed On 05-24-2025 17:54:52 PST by Ben Cabrera Please click the below link to view image of tracing.
[2025-05-23] MEDS ORDERED: MIDAZOLAM HCL 2MG/2ML 2ml VIAL (1mg/ml) ONE (09:10)
[2025-05-23] MEDS ORDERED: fentaNYL CITRATE 100 MCG/2 ML VL ONE (09:10)
[2025-05-23] MEDS ORDERED: ROCURONIUM 10MG/ML 10ML VIAL IV ONE (09:11)
[2025-05-23] MEDS ORDERED: METOCLOPRAMIDE HCL 5MG/ml INJ 2ml VIAL ONE (09:11)
[2025-05-23] MEDS ORDERED: PROPOFOL 10 MG/ML 20 ML IV ONE (09:11)
[2025-05-23] MEDS ORDERED: ONDANSETRON HCL 4 MG/2 ML VIAL ONE (09:11)
[2025-05-23] MEDS ORDERED: LIDOCAINE 2% (LOCAL ANESTH.) PF 5ml SDV ONE (09:11)
[2025-05-23] MEDS ORDERED: ONDANSETRON HCL 4 MG/2 ML VIAL IV PRN (09:15)
[2025-05-23] MEDS ORDERED: METOCLOPRAMIDE HCL 5MG/ml INJ 2ml VIAL IV PRN (09:15)
[2025-05-23] MEDS: BUPIVACAINE HCL 0.25% P/F 10 ML VIAL ONE (09:35)
[2025-05-23] MEDS ORDERED: HYDROmorphone HCL 2 MG/ML VL/or syr ONE (09:42)
[2025-05-23] MEDS ORDERED: SUGAMMADEX 200mg/2ml Vial (100MG/ML) IV ONE (09:43)
--- NOTE | 2025-05-23 10:25 | DVHOP2 ---
Operative Report - 2 Report Details Date: 05/23/25 Preop Diagnosis: Chronic appendicitis Postop Diagnosis: Same Surgeon: Alcon Ayala MD Anesthesiologist: Eusebio de guzman CRNA Anesthesia: General Consent: The patient was informed of the risks and benefits of the procedure. These include but are not limited to complications of anesthesia, postoperative infection, incomplete relief of symptoms, recurrence of symptoms, damage to blood vessels, nerves and tendons, deep venous thrombosis, pulmonary embolism and possible need for repeat surgery in the future. Complications: None Estimated Blood Loss: 2 mL Findings: And elongated and enlarged appendix. Indications for Surgery: Borderline enlarged appendix with chronic right lower quadrant and suprapubic pain Name of Procedure Performed Laparoscopic appendectomy Procedure Details Procedure Details: Upon arriving to the operating room the patient was transferred to the operating table and placed in the supine position with arms extended. General endotracheal anesthesia was induced. Time-out was observed. Patient was prepped and draped in the standard sterile surgical fashion with chlorhexidine. I then proceeded to make a curvilinear infraumbilical incision and carried the dissection down to fascia. Once at the fascia I grasped the umbilical stalk with Melody clamp, I then proceeded to walk down to the umbilical stalk base and grasped it at the base with a another Melody clamp. I then gained entry to the peritoneal cavity utilizing Blackburn technique. I then placed a [id number] fascial retention suture of 0 Vicryl. I then introduced the Blackburn cannula and insufflated the peritoneal cavity to 15 mmHg with toleration. I then inserted a 10 mm 30 degree laparoscope and surveyed the entry site, no injuries noted. I then placed 2 additional working ports of 5 mm incised, 1 at the suprapubic area and 1 at the left lower quadrant. Patient was then placed in the Trendelenburg [id number] position. I then swept the omentum and small bowel site and immediately identified an enlarged and elongated appendix. I then made a mesenteric rent at the base of the appendix. I then transected the appendix with a 45 mm Endo-AYDIN white load. I then transected the mesoappendix with another 45 mm Endo-AYDIN white load. Specimen was placed in the Endo-Catch bag and taken out of the peritoneal cavity under direct vision through the umbilical port site. I then proceeded to surveyed our surgical site, I placed several 5 mm clips at the mesenteric staple line due to slow oozing. Hemostasis achieved. The cecum staple line was intact. I then looked at the pelvis of the patient no additional pathology noted to account for his recurrent lower abdominal pain. This concluded the intraperitoneal portion of the operation. All counts complete and correct. I then removed the 2 5 mm working ports under direct vision, no bleeding from abdominal wall. Peritoneal cavity was allowed to fully desufflate. Previous fascial retention stitch was closed. 0.25% Marcaine was used as local anesthetic. All skin sites were closed with 4-0 Monocryl and Dermabond. Patient tolerated the procedure well and was transferred to PACU in stable condition. Specimen: Appendix Condition Stable Disposition Still a Patient ALCON ESTEVES MD May 23, 2025 10:25
[2025-05-23] MEDS: ceFAZolin 2 GM/D5W50ml 0 ML IV ONE (10:36)
[2025-05-23] MEDS: HYDROmorphone HCL 2 MG/ML VL/or syr IV PRN (10:48)
[2025-05-23] MEDS: ACETAMINOPHEN IV 1000 MG/100ML (10MG/ML) IV ONE (10:51)
[2025-05-23] MEDS: KETOROLAC TROMETH 30 MG/ML 1ML VIAL IV ONE (11:47)
[2025-05-23] MEDS: FAMOTIDINE (10MG/ML) 2ML VL IV SCH (11:47)
--- NOTE | 2025-05-23 12:10 | DVHPNRES ---
Progress Note Date Seen: May 23, 2025 Resident Creating Document: ANTHONY MEHTA RESDIENT Medical Necessity Reason Pt with a Central, PICC or Fol: No Subjective Review of Systems This is a 19-year-old gentleman with no significant past medical history came to the hospital due to abdominal pain since 4-5 days. Patient has history of chronic abdominal pain, which has recently worsened. He also reports of nausea, and vomiting. Patient seen and examined at the bedside, patient is status post laparoscopic appendectomy. Surgery area is clean, with no sign of infection, induration or drainage. Objective vital signs Vital Sign Date Time Temp Pulse Resp B/P (MAP) Pulse Ox O2 Delivery O2 Flow Rate FiO2 05/23/25 11:06 63 13 126/80 (95) 100 05/23/25 10:45 Room Air 0 05/23/25 10:45 99 05/23/25 10:21 97.1 97.1 Total Intake and Output 05/22/25 05/22/25 05/23/25 15:00 23:00 07:00 Intake Total 200.2 ml 0 ml 0 ml Output Total 450 ml Balance 200.2 ml 0 ml -450 ml medications Current Medications Medications Dose Ordered Sig/Sari Route Start Time Stop Time Status Last Admin Dose Admin Sodium Chloride 1,000 ml @ 100 mls/hr Q10H IV 05/22/25 10:00 05/23/25 06:00 100 MLS/HR Ondansetron HCl 4 mg Q4HP PRN IV 05/22/25 10:00 Morphine Sulfate 2 mg Q4HPRN PRN IV 05/22/25 10:00 05/22/25 20:35 2 MG Ceftriaxone Sodium 50 ml @ 100 mls/hr DAILY@09 IV 05/23/25 09:00 05/23/25 11:46 100 MLS/HR Metronidazole 100 ml @ 100 mls/hr Q8HR IV 05/22/25 22:00 05/23/25 07:47 100 MLS/HR Folic Acid 1 mg/ Multivitamins 10 ml/Magnesium Sulfate 8 meq/ Thiamine HCl 100 mg/Dextrose 1,013.2 ml @ 125.001 mls/hr DAILY@1800 INJ 05/22/25 18:00 05/22/25 18:04 125.001 MLS/HR Thiamine HCl 100 mg DAILY IV 05/22/25 10:00 05/23/25 11:47 100 MG Folic Acid 1 mg/ Dextrose 50.2 ml @ 200.8 mls/ hr DAILY INJ 05/22/25 10:00 05/22/25 13:34 200.8 MLS/HR Famotidine 20 mg DAILY IV 05/23/25 10:00 05/23/25 11:47 20 MG Lorazepam 1 mg Q5MINP PRN IV 05/22/25 11:45 Examination General Appearance: Alert, Oriented X3, Cooperative, No acute distress HEENT: Atraumatic, PERRLA, EOMI, Mucous membrane moist/pink Respiratory: Clear to auscultation, Normal air movement Cardiovascular: Regular rate, Normal S1, Normal S2, No murmurs, no chest wall tenderness Abdominal: Mild abdominal tenderness Extremities: No clubbing, No cyanosis, No edema, Normal pulses, No tenderness/swelling Skin: No rashes, No breakdown, No significant lesion Neuro: Normal gait, Normal speech, Strength at 5/5 X4 ext, Normal tone, Sensation intact, Cranial nerves 3-12 NL, Reflexes 2+ Psych/Mental Status: Mental status NL, Mood NL laboratory and microbiology Laboratory Tests 05/23/25 06:17 Test 05/23/25 06:17 Range/Units Serum Glucose 81 74-106 mg/dL Labs and/or images reviewed: Labs reviewed by me, Image(s) reviewed by me Problem List/Assessment/Plan Problem List/Assessment/Plan Chronic appendicitis, status post laparoscopic appendectomy Alcohol use disorder * CT scan shows, mildly dilated appendix without periappendiceal stranding and distended urinary bladder with mild bilateral hydroureteronephrosis, possibly on the basis of bladder outlet obstruction * Ultrasound shows moderately distended urinary bladder Plan/recommendation: * Consulted surgery, performed laparoscopic appendectomy, with no perioperative complication * Empiric antibiotic Rocephin and Flagyl * IV fluid, NS at 100 mL/hour * Pain killer * Thiamine, folic acid and banana bag * Monitoring for alcohol withdrawal DIET: NPO GI PROPHYLAXIS:: Famotidine CODE STATUS: Goal of care discussed for more than 18 minutes, full code DISPOSITION: Med/surge Patient's status and plan discussed with the patient. Case discussed with Dr. Hudson. Plan discussed with: Patient, Other (RN) Date of Service: May 23, 2025 Billing Provider: ESHA SUGGS MD Common Visit Codes: [id number] INP/OBS CARE(HIGH) ANTHONY MEHTA May 23, 2025 12:10 ESHA SUGGS MD May 24, 2025 16:08
[2025-05-23] MEDS: IBUPROFEN 600 MG TAB PO SCH (14:46)
[2025-05-23] MEDS: ACETAMINOPHEN 325 MG TAB PO SCH (18:00)
[2025-05-23] MEDS: HYDROcodone-ACET 5/325MG TAB PO PRN (18:16)
[2025-05-24 01:00] VITALS: BP 104/54; PULSE 57; RESP 16; TEMP 97.6; O2SAT 97
[2025-05-24 05:00] VITALS: BP 104/57; PULSE 58; RESP 17; TEMP 97.5; O2SAT 96
[2025-05-24 07:42] VITALS: PULSE 63; RESP 16; O2SAT 0
[2025-05-24 08:56] VITALS: BP 121/78; PULSE 69; RESP 15; TEMP 98.4; O2SAT 97
[2025-05-24] MEDS: MULTIPLE VITAMIN TAB PO SCH (09:05)
[2025-05-24] MEDS: THIAMINE HCL 100 MG TAB PO SCH (09:05)
[2025-05-24] MEDS: MAGNESIUM OXIDE 400 MG TAB PO SCH (09:05)
[2025-05-24] MEDS: FOLIC ACID 1 MG TAB PO SCH (09:05)
[2025-05-24 09:40] LABS: Hematocrit 36.4 % (41.0-53.0); Hemoglobin 12.4 g/dL (13.5-17.5); Mean Corpuscular Hemoglobin 29.8 pg (28.0-32.0); Mean Corpuscular Volume 87.0 fL (80.0-100.0); Nucleated Red Blood Cells % 0.0 %
[2025-05-24 09:57] LABS: Albumin 3.7 g/dL (3.2-4.8); Alkaline Phosphatase 84 U/L (46-116); Anion Gap 8 (5-15); BUN/Creatinine Ratio 9.8 (10.0-20.0); Carbon Dioxide 28 mmol/L (20-31); Chloride 107 mmol/L (98-107); Glucose 82 mg/dL (74-106); Potassium 4.0 mmol/L (3.5-5.1); Sodium 143 mmol/L (136-145); Total Protein 5.9 g/dL (5.7-8.2)
[2025-05-24 09:58] LABS: Bilirubin, Total 0.7 mg/dL (0.2-1.0)
[2025-05-24 10:00] LABS: Alanine Aminotransferase < 9 U/L (7-40); Blood Urea Nitrogen 8 mg/dL (9-23); Calcium 8.7 mg/dL (8.7-10.4)
--- NOTE | 2025-05-24 10:07 | DVHDSRES ---
Discharge Summary Date of Admission Resident Creating Document: ANTHONY MEHTA RESDIENT May 22, 2025 at 09:53 Date of Discharge: May 24, 2025 Labs/Diagnostic Data: Laboratory Results Test 05/24/25 08:04 05/23/25 06:17 05/22/25 12:01 05/22/25 05:07 Eosinophils (%) (Auto) 3.3 % (0.0-7.0) Eosinophils # (Auto) 0.2 10 ^3/uL (0-0.8) Basophils # (Auto) 0 10 ^3/uL (0-0.2) Nucleated Red Blood Cells 0.1 % Phosphorus Level 4.4 mg/dL (2.4-5.1) Magnesium Level 2.2 mg/dL (1.6-2.6) Prothrombin Time 11.4 sec (9.3-11.8) Prothrombin Time INR 1.08 (0.9-1.15) Activated Partial Thromboplast Time 28.5 SEC (24.5-34.5) Hemoglobin A1c 5.3 % A1C (<5.7) Vitamin B12 Level 550 pg/mL (211-911) Vitamin D 25-Hydroxy 23.0 ng/mL (30.0-100) Thyroid Stimulating Hormone (TSH) 1.26 uIU/mL (0.55-4.78) Plasma/Serum Blood Alcohol 41.9 mg/dL (<10) Test 05/22/25 02:57 05/21/25 23:56 05/21/25 23:44 Lactic Acid Level 1.6 mmol/L (0.4-2.0) Lipase 27 U/L (12-53) Urine Color Light-yellow (Yellow) Urine Clarity Clear (Clear) Urine pH 7.0 (5.0-9.0) Urine Specific [place] 1.006 (1.001-1.035) Urine Protein Negative (Negative) Urine Ketones Negative (Negative) Urine Blood Negative /uL (Negative) Urine Nitrite Negative (Negative) Urine Bilirubin Negative (Negative) Urine Urobilinogen Normal mg/dL (Negative) Urine Leukocyte Esterase Negative /uL (Negative) Urine RBC None seen /hpf (0 - 3) Urine Microscopic WBC 4 /HPF (0-3) Urine Squamous Epithelial Cells Few /hpf (<5) Urine Bacteria None seen /hpf (None Seen) Urine Glucose Normal mg/dL (Normal) Urine Opiates Screen Neg (NEGATIVE) Urine Fentanyl Screen Neg (NEGATIVE) Urine Barbiturates Screen Neg (NEGATIVE) Urine Phencyclidine Screen Neg (NEGATIVE) Urine Amphetamines Screen Neg (NEGATIVE) Urine Benzodiazepines Screen Neg (NEGATIVE) Urine Cocaine Screen Neg (NEGATIVE) Urine Cannabinoids Screen Neg (NEGATIVE) Brief Hx & Hospital Course: HISTORY OF PRESENT ILLNESS: This is a 19-year-old gentleman with no significant past medical history came to the hospital due to abdominal pain since 4-5 days. Patient has history of chronic abdominal pain, which has recently worsened. He also reports of nausea, and vomiting. HOSPITAL COURSE: Patient admitted to hospital due to appendicitis.CT scan shows, mildly dilated appendix without periappendiceal stranding and distended urinary bladder with mild bilateral hydroureteronephrosis, possibly on the basis of bladder outlet obstruction. Surgery consulted, and performed laparoscopic appendectomy with a perioperative complication. During hospital the admission, the patient was given empiric antibiotic of Rocephin, Flagyl, and IV fluid. Patient was also given pain killer, and for possible alcohol use disorder the patient was also given thiamine, folic acid and banana bag. On 04/23, the patient was feeling better since admission. The patient was able to tolerate oral intake. The patient does not have any pain. Discharge plan discussed with the patient the patient discharged home. The patient was recommended to follow up with the PCP, discharge Clinic within 1 week of the discharge and Augmentin 850 mg b.i.d. for 3 days. FINAL DIAGNOSIS: acute on Chronic appendicitis, status post laparoscopic appendectomy Alcohol use disorder Sirs positive, with no end-organ damage Ruled out alcohol intoxication Lactic acidosis Ruled out bladder outlet obstruction Condition at Discharge: Stable Final Diagnosis/Problems List acute on Chronic appendicitis, status post laparoscopic appendectomy Alcohol use disorder Sirs positive, with no end-organ damage Ruled out alcohol intoxication Lactic acidosis Ruled out bladder outlet obstruction Discharge Disposition: Home Discharge Instruct/Medications Scheduled Amoxicillin & Pot Clavulanate (Augmentin Tablet), 875 MG PO BID Discharge Statement: "Patient was advised to return to the ER or call 911 if any headaches, dizziness, shortness of breath, chest pain, abdominal pain, bleeding, fevers, or worsening of medical condition. Patient was counseled about treatment plan, medications, possible side effects, patientverbalized understanding. All questions were answered to the best of my ability. This discharge took greater then 30 minutes in planning, reviewing documentation, counseling the patient, and discussing with other team members." ASSESSMENT ASSESSMENT Assessment Same Date of Service: May 24, 2025 Billing Provider: ESHA SUGGS MD Common Visit Codes: [id number] DISCH DAY >30min ANTHONY MEHTA RESDIENT May 24, 2025 10:07 ESHA SUGGS MD May 24, 2025 15:46
--- NOTE | 2025-05-24 11:24 | DVHPN2 ---
Progress Note - Surgical Date Seen: May 24, 2025 Post op day Post op day: 1 Subjective Patient reports: Feels better (No abdominal pain complaints, tolerating diet, ambulating, afebrile with vital stable.) Review of Systems: Deferred Objective Vital signs Vital Sign Date Time Temp Pulse Resp B/P (MAP) Pulse Ox O2 Delivery O2 Flow Rate FiO2 05/24/25 08:56 98.4 69 15 121/78 (92) 97 98.4 05/24/25 07:42 Room Air* 0 21 Total Intake and Output 05/23/25 05/23/25 05/24/25 15:00 23:00 07:00 Intake Total 400.2 ml 900 ml 400 ml Balance 400.2 ml 900 ml 400 ml Medications Current Medications Medications Dose Ordered Sig/Sari Route Start Time Stop Time Status Last Admin Dose Admin Sodium Chloride 1,000 ml @ 100 mls/hr Q10H IV 05/22/25 10:00 05/24/25 02:00 100 MLS/HR Ondansetron HCl 4 mg Q4HP PRN IV 05/22/25 10:00 Morphine Sulfate 2 mg Q4HPRN PRN IV 05/22/25 10:00 05/24/25 01:43 2 MG Ceftriaxone Sodium 50 ml @ 100 mls/hr DAILY@09 IV 05/23/25 09:00 05/24/25 09:04 100 MLS/HR Metronidazole 100 ml @ 100 mls/hr Q8HR IV 05/22/25 22:00 05/24/25 05:31 100 MLS/HR Famotidine 20 mg DAILY IV 05/23/25 10:00 05/24/25 09:04 20 MG Lorazepam 1 mg Q5MINP PRN IV 05/22/25 11:45 Acetaminophen/ Hydrocodone Bitart 1 tab Q4HPRN PRN PO 05/23/25 14:00 05/23/25 18:16 1 TAB Acetaminophen 650 mg Q6HR PO 05/23/25 18:00 05/24/25 05:30 650 MG Ibuprofen 600 mg Q8HR PO 05/23/25 14:00 05/24/25 05:31 600 MG Folic Acid 1 mg DAILY PO 05/24/25 10:00 05/24/25 09:05 1 MG Multivitamins 1 tab DAILY PO 05/24/25 10:00 05/24/25 09:05 1 TAB Magnesium Oxide 400 mg DAILY PO 05/24/25 10:00 05/24/25 09:05 400 MG Thiamine HCl 100 mg DAILY PO 05/24/25 10:00 05/24/25 09:05 100 MG Laboratory Laboratory Tests 05/24/25 08:04 Test 05/24/25 08:04 Range/Units Serum Glucose 82 74-106 mg/dL Microbiology Date/Time Source Procedure Growth Status 05/22/25 19:41 Blood Blood Culture - Preliminary NO GROWTH AFTER 24 HOURS OF INCUBATION. Resulted Examination: GENERAL:Normal, LUNGS:Normal (Nonlabored breathing with symmetric expansion), ABDOMEN:Normal (Flat, soft, depressible, incision sites with overlying skin glue and without surrounding signs of infection, appropriate tenderness) Labs and/or images reviewed: Labs reviewed by me (No leukocytosis) Problem List/Assessment/Plan Problems: (1) Chronic appendicitis Assessment and Plan Mr. Salgado is a 19-year-old male who presented with the acute on chronic appendicitis, and is currently postop day 1 from laparoscopic appendectomy. Patient is doing well after the surgery, no abdominal pain complaints, tolerated diet, ambulated, labs and vitals within normal limits. Patient is cleared per surgical standpoint for discharge. 1. Cleared for discharge per surgical standpoint 2. Low-fat diet 3. No lifting over 10 lb for 6 weeks 4. May shower starting today, soap and water okay to run over incision sites. No swimming and/or bathing for 2 weeks. 5. Tylenol and/or ibuprofen for baseline pain control, please follow senior technical support engineer's directions. 6. Recommend [place] 5-325 mg 1 tab p.o. every 6 hours p.r.n. severe pain 7. No driving while taking narcotics 8. Follow up with Dr. Salgado at surgery Clinic in 2 weeks, please call for appointment. My Orders My Orders Orders - JESSI ESTEVES MD Procedure Category Date Status Time Hydrocodone-Acet PHA 05/23/25 In Process 5/325mg Tab ([place] 14:00 Acetaminophen Tablet PHA 05/23/25 In Process (Tylenol Tablet) 18:00 Ibuprofen Tablet PHA 05/23/25 In Process (Motrin Tablet) 14:00 Plan discussed with Plan discussed with: Patient, Other (Mother) Visit Coding Surgery Date of Service if different f: May 24, 2025 Billing Provider: JESSI ESTEVES MD Surgery Visit Codes: [id number] INP/OBS CARE(HIGH) JESSI ESTEVES MD May 24, 2025 11:24
[2025-05-24 13:00] VITALS: BP 110/79; PULSE 65; RESP 15; TEMP 98.9; O2SAT 99
[2025-05-24] MEDS ORDERED: AUG875T PO (13:27)
== END 2025-05-24 15:40 | disposition home or self-care (01) | DRG 398 ==
LOC: ER 23:27 → OVERFLOW 05-22 09:53 → CENTRAL 05-22 15:40
PROVIDERS: ADMIT Student in an Organized Health Care Education/Training Program; ATTEND Student in an Organized Health Care Education/Training Program
PROC: 0DTJ4ZZ Resection of Appendix, Percutaneous Endoscopic Approach (ICD-10-PCS; principal; 2025-05-23 09:11)
DX: K35.80 Unspecified acute appendicitis (principal); D68.9 Coagulation defect, unspecified; E87.20 Acidosis, unspecified; R65.10 Systemic inflammatory response syndrome (SIRS) of non-infectious origin without acute organ dysfunction; K36 Other appendicitis; F10.10 Alcohol abuse, uncomplicated; N13.2 Hydronephrosis with renal and ureteral calculous obstruction; Y90.0 Blood alcohol level of less than 20 mg/100 ml; R74.8 Abnormal levels of other serum enzymes
CPT/HCPCS: 36415; 74176; 76775; 80048; 80053; 80307; 80320; 81001; 82306; 82607; 83036; 83605; 83690; 83735; 84100; 84443; 85025; 85610; 85730; 86850; 86900; 86901; 87040; 93005; 96374; G0378; J0131; J0694; J1885; J2003; J2250; J2405; J2470; J2704; J3490; J7060